=== PATIENT | female | born 1975 | race Caucasian/White ===

== ENCOUNTER 2019-06-19 17:17 | Emergency (ER) | payer OTHER ==
[2019-06-19 17:57] VITALS: BP 151/97
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
[2019-06-19] MEDS ORDERED: predniSONE 20 MG TABLET PO ONE (18:40)
--- NOTE | 2019-06-19 19:22 | Diagnostic Imaging Report ---
PATIENT MR#: [id number] PATIENT PATIENT NAME: CLARIBEL BALDERAS DATE OF : 1975 REFERRING PHYSICIAN: Keysha Rondon EXAM DATE: 06/19/2019 ACCESSION NUMBER: [id number] EXAM DESCRIPTION: ELBOW 3 VIEWS Right elbow, 3 views History: Elbow pain Findings: There is no acute fracture, dislocation or abnormal bone destruction. Periosteal reaction i s noted at the distal humerus which may indicate chronic injury. Impression: No acute osseous abnormality. Read by: Dr. Beny Davey Transcribed by: Transcribed Date: Electronically signed by: Dr. Beny Davey Date signed: 06/19/2019 7:21:37 PM
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
== END 2019-06-19 19:42 | disposition home or self-care (01) ==
LOC: ED 17:17
DX: M54.2 Cervicalgia (principal); S59.901A Unspecified injury of right elbow, initial encounter; V87.7XXA Person injured in collision between other specified motor vehicles (traffic), initial encounter; Y99.8 Other external cause status
CPT/HCPCS: 72040; 73080; 99283; 99284